=== PATIENT | male | born 1960 | race Caucasian/White ===

== ENCOUNTER → 2020-02-22 | Outpatient (CLI) | payer OTHER | LOC: RAD 08:44 | DX: M19.011 Primary osteoarthritis, right shoulder (principal) ==

== ENCOUNTER → 2020-02-28 | Outpatient (CLI) | payer OTHER | LOC: RAD 02-27 16:37 | DX: M75.101 Unspecified rotator cuff tear or rupture of right shoulder, not specified as traumatic (principal); M89.311 Hypertrophy of bone, right shoulder; M47.816 Spondylosis without myelopathy or radiculopathy, lumbar region ==

== ENCOUNTER → 2020-03-26 | Outpatient (CLI) | payer OTHER | END | disposition still patient (30) | LOC: PT 08:56 → EDSTATUS 16:03 | DX: Z01.812 Encounter for preprocedural laboratory examination (principal); M67.813 Other specified disorders of tendon, right shoulder ==

== ENCOUNTER → 2020-04-17 13:00 | Outpatient (RCR) | payer OTHER | END | disposition still patient (30) | LOC: PT 04-04 09:00 | DX: M75.21 Bicipital tendinitis, right shoulder (principal) ==

== ENCOUNTER 2022-11-05 08:00 | Outpatient (RCR) | payer BC | END 2022-11-21 | disposition home or self-care (01) | LOC: PT | DX: M20.11 Hallux valgus (acquired), right foot (principal); M21.271 Flexion deformity, right ankle and toes; Z98.890 Other specified postprocedural states ==